=== PATIENT | female | born 1990 | race Two or more races ===

== ENCOUNTER 2018-08-30 21:51 | Emergency (ER) | payer SELFPAY ==
[~2018-08-30] VITALS: Ht 144.8 cm; Wt 64.9 kg
[2018-08-30 22:36] LABS: Basophils # (auto) 0.1 uL; Basophils % (auto) 0.7 % (0.0-2.0); Eosinophils # (auto) 0.1 uL; Eosinophils % (auto) 1.3 % (0.0-7.0); Hematocrit 38.7 % (36.0-46.0); Hemoglobin 12.8 g/dL (12.2-16.2); Lymphocytes # (auto) 2.8 uL; Lymphocytes % (auto) 34.2 % (10.0-50.0); Mean Corpuscular Hemoglobin 27.4 pg (28.0-32.0); Mean Corpuscular Hgb Conc. 33.1 g/dL (32.0-36.0); Mean Corpuscular Volume 82.9 fL (80.0-100.0); Monocytes # (auto) 0.7 uL; Monocytes % (auto) 7.8 % (0.0-12.0); Neutrophils # (auto) 4.7 uL; Platelet Count (auto) 364 10^3/uL (140-450); Red Blood Cells 4.67 10^6/uL (4.0-5.20); Red Cell Distribution Width 14.4 % (11.8-14.3); White Blood Cell 8.3 10^3/uL (4.4-10.8)
[2018-08-30 22:54] LABS: BUN/Creatinine Ratio 17.5; Potassium 3.6 mmol/L (3.5-5.1)
[2018-08-30 22:55] LABS: Albumin 3.6 g/dL (3.4-5.0); Calcium 8.5 mg/dL (8.5-10.1)
[2018-08-30 22:56] LABS: Urine Bacteria NONE SEEN /hpf (None Seen); Urine Blood 2+ /uL (Negative); Urine Specific Gravity 1.015 (1.001-1.035); Urine WBC <1 /hpf (0 - 5)
[2018-08-30 22:57] LABS: Bilirubin, Total 0.2 mg/dL (0.2-1.0)
[2018-08-31 02:30] VITALS: BP 101/64
== END 2018-08-31 02:51 | disposition home or self-care (01) ==
LOC: ER 21:51
DX: O20.0 Threatened abortion (principal); Z3A.01 Less than 8 weeks gestation of pregnancy
CPT/HCPCS: 36415; 76801; 76817; 80053; 81001; 81025; 84702; 85025

== ENCOUNTER 2019-06-07 04:42 | Emergency (ER) | payer MEDICAID ==
[~2019-06-07] VITALS: Ht 144.8 cm; Wt 68.0 kg
[2019-06-07 07:08] VITALS: BP 129/71
[2019-06-07] MEDS ORDERED: HYDROcodone-ACET 10/325MG TAB PO ONE (07:15)
[2019-06-07] MEDS ORDERED: KETOROLAC TROMETH 60MG/2ML VIAL IM ONE (07:15)
== END 2019-06-07 08:03 | disposition home or self-care (01) ==
LOC: ER 04:44
DX: S82.142A Displaced bicondylar fracture of left tibia, initial encounter for closed fracture (principal); F17.210 Nicotine dependence, cigarettes, uncomplicated; W01.10XA Fall on same level from slipping, tripping and stumbling with subsequent striking against unspecified object, initial encounter; Y93.89 Activity, other specified; Y99.8 Other external cause status; Y92.89 Other specified places as the place of occurrence of the external cause
CPT/HCPCS: 29505; 70450; 72125; 73700; 96372; 99284; J1885